=== PATIENT | female | born 1965 | race Caucasian/White ===

== ENCOUNTER 2022-07-14 15:55 | Emergency (ER) | payer OTHER ==
[~2022-07-14] VITALS: Ht 149.9 cm; Wt 74.8 kg
--- NOTE | 2022-07-14 16:00 | NUR ---
BIBS FOR GROUND LEVEL FALL, LACERATION TO FOREHEAD. A/O X 3, ABLE TO MAKE NEEDS KNOWN, TOLERATING WELL ON ROOM AIR.
[2022-07-14] MEDS ORDERED: LIDOCAINE HCL/MPF 1% 30 ML VIAL IJ ONE (16:22)
[2022-07-14] MEDS ORDERED: IBUPROFEN 600 MG TABLET ONE (16:23)
[2022-07-14] MEDS ORDERED: LIDOCAINE 1% INJ 50 ML MDV IJ ONE (16:23)
[2022-07-14] MEDS ORDERED: TDAP [DIPH/PERTUSSIS/TET] 0.5 ML VIAL IM ONE ×2 (16:23→16:30)
[2022-07-14] MEDS ORDERED: IBUPROFEN 600 MG TABLET PO ONE (16:30)
[2022-07-14] MEDS ORDERED: LIDOCAINE HCL/PF 1% 30 ML VIAL TP ONE (16:30)
[2022-07-14 17:02] VITALS: BP 135/88
--- NOTE | 2022-07-14 17:02 | NUR ---
Patient discharged to home in stable condition. Written and verbal after care instructions given. Patient verbalizes understanding of instruction.
== END 2022-07-14 17:02 | disposition home or self-care (01) ==
LOC: ER 15:58
DX: S01.111A Laceration without foreign body of right eyelid and periocular area, initial encounter (principal); E11.9 Type 2 diabetes mellitus without complications; W01.0XXA Fall on same level from slipping, tripping and stumbling without subsequent striking against object, initial encounter; Y93.89 Activity, other specified; Y92.89 Other specified places as the place of occurrence of the external cause; Y99.8 Other external cause status
CPT/HCPCS: 99283; 12013; 90471; 90715; J3490 ×2